=== PATIENT | male | born 1955 | race Caucasian/White ===

== ENCOUNTER → 2018-08-31 | Outpatient (CLI) | payer OTHER ==
[~2018-08-31] MED LIST: AMLO10TA2 PO; ASPI81TA85 PO; FISH1000 PO; LIPI20TA PO; LOPR50TA PO; LOSA100T36 PO; OMEP40CA2 PO; VICO5TAB PO
--- NOTE | 2018-09-01 05:51 | REP ---
Clinical: Nontoxic thyroid goiter. Comparison: None Technique: Real time gibson scale examination using high frequency transducer. Findings: The thyroid gland is mildly enlarged and diffusely heterogeneous. Left lobe measures 6.1 x 1.4 x 2.5 cm without cyst or nodule. Right lobe measures 5.0 x 2.3 x 1.7 cm and includes 2.1 x 0.7 x 1.3 cm isoechoic anterior mid pole nodule and 1.7 x 1.4 x 1.7 cm complex posterior mid pole nodule. The isthmus measures 5.2 mm in width. 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 Electronically Signed by James Singh MD 09/01/2018 05:43 A
== END ==
LOC: M RAD 09:20
PROVIDERS: ATTEND Otolaryngology
DX: E04.9 Nontoxic goiter, unspecified (principal)

== ENCOUNTER 2018-10-27 10:06 | Day surgery (SDC) | payer OTHER ==
[~2018-10-27] VITALS: Ht 177.8 cm; Wt 102.1 kg
[~2018-10-27 10:06] MED LIST changes: +AMLO10TA5 PO; +ATOR80TA59 PO; +CRES10TA PO; +HYDR-3713 PO; +HYDR-4514 PO; +LOSA100T50 PO; +LR 1,000 ML IV ONE; +METO1TAB7 PO; +METO50TA7 PO; +OMEG10002 PO; +OMEP-218 PO; +dexameTHASONE 4 MG/ML 1ML VIAL (J1100) IV ONE
[2018-10-27] MEDS ORDERED: ONDANSETRON 4MG/2ML VIAL (J2405) As Ordered ONE (10:38)
[2018-10-27] MEDS ORDERED: LIDOCAINE 2% INJ 100 MG/5 ML SDV (FOR ANES.) As Ordered ONE (10:38)
[2018-10-27] MEDS ORDERED: dexameTHASONE 4 MG/ML 1ML VIAL (J1100) As Ordered ONE (10:38)
[2018-10-27] MEDS ORDERED: ROCURONIUM BROMIDE 50 MG/5 ML VIAL As Ordered ONE ×2 (10:38→14:23)
[2018-10-27] MEDS ORDERED: PROPOFOL 200 MG/20 ML VIAL As Ordered ONE (10:38)
[2018-10-27] MEDS ORDERED: NEOSTIGMINE 10 MG/10 ML VIAL (J2710) As Ordered ONE (10:38)
[2018-10-27] MEDS ORDERED: MIDAZOLAM INJ 2 MG/2 ML VIAL (J2250) As Ordered ONE (10:38)
[2018-10-27] MEDS ORDERED: GLYCOPYRROLATE INJ 0.2 MG/ML 2 ML VIAL As Ordered ONE (10:38)
[2018-10-27] MEDS ORDERED: fentaNYL 100 MCG/2 ML INJECTION (J3010) As Ordered ONE ×3 (10:39→17:05)
[2018-10-27 11:10] LABS: HEMOGLOBIN 14.9 g/dl (13.5-17.5); MEAN CORPUSCULAR HEMOGLOBIN 31.4 pg (27.0-33.0); MEAN CORPUSCULAR HGB CONC 33.1 g/dl (32.0-36.5); MEAN CORPUSCULAR VOLUME 94.9 fl (80.0-96.0); PLATELET COUNT, AUTOMATED 224 10^3/uL (150-450); RED BLOOD COUNT 4.74 10^6/uL (4.30-6.10); WHITE BLOOD COUNT 6.2 10^3/uL (4.0-10.0)
[2018-10-27 11:43] LABS: BLOOD UREA NITROGEN 12 MG/DL (7-18); CALCIUM LEVEL 8.8 MG/DL (8.8-10.2); CARBON DIOXIDE LEVEL 27 MEQ/L (21-32); CHLORIDE LEVEL 106 MEQ/L (98-107); CREATININE FOR GFR 0.85 MG/DL (0.70-1.30); GLOMERULAR FILTRATION RATE > 60.0 (>49); GLUCOSE, FASTING 113 MG/DL (70-100); POTASSIUM SERUM 4.2 MEQ/L (3.5-5.1); SODIUM LEVEL 139 MEQ/L (136-145)
[2018-10-27] MEDS ORDERED: LIDOCAINE W/EPINEPHRINE 1% 20ML VIAL As Ordered ONE (13:21)
[2018-10-27] MEDS ORDERED: PHENYLEPHRINE INJ 10MG/ML VIAL (J2370) As Ordered ONE (14:25)
[2018-10-27] MEDS ORDERED: BACITRACIN OINT 30GM As Ordered ONE (16:19)
[2018-10-27] MEDS: fentaNYL 100 MCG/2 ML INJECTION (J3010) IV PRN ×2 (16:50→17:00)
[2018-10-27] MEDS ORDERED: PERCOCET 5MG/325MG TAB As Ordered ONE (17:05)
[2018-10-27] MEDS: NORCO, ANEXSIA 5/325MG TABLET (HYDROcodone/ACETAMINOPHEN) PO PRN ×3 (17:15→17:45)
[2018-10-27] MEDS ORDERED: METOCLOPRAMIDE INJ 10MG/2ML VIAL (J2765) IV PRN (17:15)
[2018-10-27] MEDS ORDERED: ONDANSETRON 4MG/2ML VIAL (J2405) IV PRN (17:15)
[2018-10-27] MEDS ORDERED: PERCOCET 5MG/325MG TAB PO PRN (17:15)
[2018-10-27] MEDS ORDERED: NORCO, ANEXSIA 5/325MG TABLET (HYDROcodone/ACETAMINOPHEN) As Ordered ONE (17:15)
[2018-10-27] MEDS ORDERED: LR 1,000 ML IV SCH ×2 (17:15)
[2018-10-27] MEDS ORDERED: AUGMENTIN 875 MG TAB PO ONE (18:00)
[2018-10-27 18:05] VITALS: BP 126/74
== END 2018-10-27 18:35 | disposition home or self-care (01) ==
LOC: M SDC 10:06
PROVIDERS: ATTEND Otolaryngology
DX: Q89.2 Congenital malformations of other endocrine glands (principal); I10 Essential (primary) hypertension; E78.5 Hyperlipidemia, unspecified; F17.210 Nicotine dependence, cigarettes, uncomplicated; G47.30 Sleep apnea, unspecified; K21.9 Gastro-esophageal reflux disease without esophagitis; Z92.3 Personal history of irradiation; Z79.82 Long term (current) use of aspirin; Z79.899 Other long term (current) drug therapy
CPT/HCPCS: 36415; 60280; 80048; 85027; 88305; J1100; J2250; J2370; J2405; J2710; J3010

== ENCOUNTER → 2018-11-24 | Outpatient (CLI) | payer OTHER ==
[~2018-11-24] MED LIST changes: -LR 1,000 ML IV ONE; -dexameTHASONE 4 MG/ML 1ML VIAL (J1100) IV ONE
== END ==
LOC: M SMT 10:20
PROVIDERS: ATTEND Nurse Practitioner Women's Health
DX: Z85.46 Personal history of malignant neoplasm of prostate (principal)

== ENCOUNTER → 2018-12-28 | Outpatient (CLI) | payer OTHER ==
--- NOTE | 2018-12-28 12:07 | REP ---
WHOLE BODY BONE SCAN: Following the intravenous administration of 21.9 millicuries of technetium 99m MDP, the patient's whole body is imaged in the anterior and posterior projections with additional oblique and lateral views obtained. There is relatively homogenous trace distribution throughout the axial and appendicular skeleton. No focal areas of abnormal uptake are seen, with no compelling scintigraphic evidence of osseous metastases. Renal and bladder activity are seen. IMPRESSION: No compelling scintigraphic evidence of osseous metastases. Electronically Signed by Raman Zambrano MD 12/28/2018 05:33 P
== END ==
LOC: M RAD 07:38
PROVIDERS: ATTEND Nurse Practitioner Women's Health
DX: R97.21 Rising PSA following treatment for malignant neoplasm of prostate (principal)
CPT/HCPCS: 78306; A9503

== ENCOUNTER → 2019-01-06 | Outpatient (REF) | payer OTHER ==
[2019-01-06 14:47] LABS: APPEARANCE, URINE CLEAR (CLEAR); BACTERIA, URINE AUTO NEGATIVE (NEGATIVE); BILIRUBIN, URINE AUTO NEGATIVE (NEGATIVE); BLOOD, URINE BLOOD NEGATIVE (NEGATIVE); COLOR, URINE STRAW (YELLOW); GLUCOSE, URINE (UA) AUTO NEGATIVE (NEGATIVE); KETONE, URINE AUTO NEGATIVE (NEGATIVE); LEUKOCYTE ESTERASE, URINE AUTO NEGATIVE (NEGATIVE); NITRITE, URINE AUTO NEGATIVE (NEGATIVE); PROTEIN, URINE AUTO NEGATIVE (NEGATIVE); RBC, URINE AUTO 0 /HPF (0-3); SPECIFIC GRAVITY URINE AUTO 1.008 (1.002-1.035); SQUAMOUS EPITHELIAL CELL UR AU 0 /HPF (0-6); UROBILINOGEN, URINE AUTO 0.2 mg/dL (0.0-2.0); WBC, URINE AUTO 0 /HPF (0-3)
== END ==
LOC: M SMT 13:45
PROVIDERS: ATTEND Urology
DX: N28.89 Other specified disorders of kidney and ureter (principal); Z01.818 Encounter for other preprocedural examination; N39.0 Urinary tract infection, site not specified

== ENCOUNTER 2019-01-11 14:00 | Day surgery (SDC) | payer OTHER ==
[~2019-01-11] VITALS: Ht 177.8 cm; Wt 97.3 kg
[~2019-01-11 14:00] MED LIST changes: +LIDOCAINE 2% INJ 100 MG/5 ML SDV (FOR ANES.) As Ordered ONE; +LR 1,000 ML IV ONE; +MIDAZOLAM INJ 2 MG/2 ML VIAL (J2250) As Ordered ONE; +PROPOFOL 200 MG/20 ML VIAL As Ordered ONE; +ROCURONIUM BROMIDE 50 MG/5 ML VIAL As Ordered ONE; +fentaNYL 250 MCG/5 ML INJECTION (J3010) As Ordered ONE
[2019-01-11] MEDS ORDERED: CONRAY-60 60% 50ML VIAL (Q9961) As Ordered ONE (15:11)
[2019-01-11] MEDS ORDERED: KETOROLAC 60 MG/2 ML VIAL (J1885) As Ordered ONE (15:29)
[2019-01-11] MEDS ORDERED: ONDANSETRON 4MG/2ML VIAL (J2405) As Ordered ONE (15:29)
[2019-01-11] MEDS ORDERED: dexameTHASONE 4 MG/ML 1ML VIAL (J1100) As Ordered ONE (15:29)
[2019-01-11] MEDS ORDERED: SUGAMMADEX SODIUM 500 MG/5 ML VIAL (BRIDION) As Ordered ONE (15:29)
[2019-01-11] MEDS ORDERED: PERCOCET 5MG/325MG TAB As Ordered ONE (16:11)
--- NOTE | 2019-01-11 16:13 | REP ---
Retrograde pyelogram: Seven views. History: Transurethral resection of bladder tumor. 24 seconds of fluoroscopy time is reported. Findings: A sequence of seven last image hold fluoroscopically obtained spot radiographs of the left ureter document left ureteral cannulation, contrast injection, and stent placement. Initial views demonstrate an irregular filling defect in the distal ureter. Electronically Signed by Sawyer Mcclure MD 01/11/2019 04:35 P
[2019-01-11] MEDS ORDERED: LR 1,000 ML IV SCH (16:15)
[2019-01-11] MEDS ORDERED: PERCOCET 5MG/325MG TAB PO PRN (16:15)
[2019-01-11] MEDS ORDERED: fentaNYL 100 MCG/2 ML INJECTION (J3010) IV PRN (16:15)
[2019-01-11] MEDS ORDERED: ONDANSETRON 4MG/2ML VIAL (J2405) IV PRN (16:15)
[2019-01-11 16:35] VITALS: BP 153/79
--- NOTE | 2019-01-12 07:22 | RO ---
DATE OF PROCEDURE: 01/11/2019 PREPROCEDURE DIAGNOSIS: Gross hematuria, left renal mass. POSTPROCEDURE DIAGNOSIS: Gross hematuria, left renal mass. PROCEDURE: Cystoscopy, left ureteroscopy, left retrograde pyelogram with intraoperative interpretative images, left ureteral stent placement. SURGEON: Dr. Winston Martinez INSTRUMENT DESIGNER: None. ANESTHESIA: General. OPERATIVE INDICATIONS: This is a 63-year-old male who on recent CAT scan was found to have a 4 cm central enhancing and infiltrative left renal mass. Based on the appearance of this, it was not easily determined whether or not this was renal cell carcinoma or urothelial carcinoma. The patient has also had gross hematuria. He is therefore brought to the operating room today for cystoscopy as well as exam in his left collecting systems for possible mass and to obtain biopsies. DESCRIPTION OF PROCEDURE: The patient was brought to the operating room where general anesthesia was induced. Prophylactic antibiotics were infused. He was then placed in dorsal lithotomy position and prepped and draped in the usual sterile fashion. Cystoscope was inserted into the urethral meatus and advanced towards the bladder. Of note, his bladder is hypervascular which is consistent with his previous history of radiation for prostate cancer. No masses were seen within the bladder. Both ureteral orifices were orthotopic and both effluxed clear urine. At this point, an open ended ureteral catheter was advanced into the left collecting system and a retrograde pyelogram was performed. It was negative for hydronephrosis or filling defects. I then advanced a wire up the left collecting system and then advanced a ureteral access sheath over the wire. I went up the access sheath with a flexible ureteroscope and examined all the calices of the left kidney and no masses were seen within the left kidney. I then obtained renal pelvic washing to be sent to cytology. After that was done, the ureteroscope was removed along with the access sheath. Because of some narrowing of the ureter and difficulty getting the scope up, I did decide to leave a stent. At this point, I utilized the wire to advance a 6 Serbian x 22-32 cm JJ ureteral stent up the left collecting system. The wire was removed and there were adequate curls of the stent in the left renal pelvis and in the bladder. At this point, the bladder was emptied of all fluid and this marked the conclusion of the procedure. The patient was taken out of dorsal lithotomy position, awakened from anesthesia and transported to the recovery room in stable condition. Estimated blood loss: 5 mL. Complications: None. Specimen: Left renal pelvis washing for cytology. Plan: I will have the patient follow up in the clinic within the next week or two to discuss the results of the cytology. I suspect the mass is renal cell carcinoma based on the procedure today, and therefore, he would need a left radical nephrectomy for treatment. MTDD
== END 2019-01-11 16:53 | disposition home or self-care (01) ==
LOC: M SDC 14:00
PROVIDERS: ATTEND Urology
DX: R31.0 Gross hematuria (principal); N28.89 Other specified disorders of kidney and ureter; C61 Malignant neoplasm of prostate; R97.21 Rising PSA following treatment for malignant neoplasm of prostate; N39.0 Urinary tract infection, site not specified; I10 Essential (primary) hypertension; E78.49 Other hyperlipidemia; K21.9 Gastro-esophageal reflux disease without esophagitis; F17.210 Nicotine dependence, cigarettes, uncomplicated; Z79.82 Long term (current) use of aspirin; Z79.899 Other long term (current) drug therapy; Z92.3 Personal history of irradiation
CPT/HCPCS: 52332; 74420; 88108; 88313; C1769; C1894; C2617; J0690; J1100; J1885; J2250; J2405; J3010; Q9961

== ENCOUNTER 2019-02-08 06:08 | Inpatient (IN) | payer OTHER ==
[~2019-02-08] VITALS: Ht 177.8 cm; Wt 97.0 kg
[2019-02-08] VITALS (7 sets, daily range): BP systolic 124–157; BP diastolic 62–92; O2SAT 98
[~2019-02-08 06:08] MED LIST changes: +LIDOCAINE 1% MDV 20ML VIAL SQ PRN; -LIDOCAINE 2% INJ 100 MG/5 ML SDV (FOR ANES.) As Ordered ONE; -MIDAZOLAM INJ 2 MG/2 ML VIAL (J2250) As Ordered ONE; -PROPOFOL 200 MG/20 ML VIAL As Ordered ONE; -ROCURONIUM BROMIDE 50 MG/5 ML VIAL As Ordered ONE; -fentaNYL 250 MCG/5 ML INJECTION (J3010) As Ordered ONE
[2019-02-08] MEDS ORDERED: PROPOFOL 200 MG/20 ML VIAL As Ordered ONE (07:04)
[2019-02-08] MEDS ORDERED: ROCURONIUM BROMIDE 50 MG/5 ML VIAL As Ordered ONE ×3 (07:04→09:57)
[2019-02-08] MEDS ORDERED: LIDOCAINE 2% INJ 100 MG/5 ML SDV (FOR ANES.) As Ordered ONE (07:04)
[2019-02-08] MEDS ORDERED: ONDANSETRON 4MG/2ML VIAL (J2405) As Ordered ONE (07:05)
[2019-02-08] MEDS ORDERED: dexameTHASONE 4 MG/ML 1ML VIAL (J1100) As Ordered ONE (07:05)
[2019-02-08] MEDS ORDERED: MIDAZOLAM INJ 2 MG/2 ML VIAL (J2250) As Ordered ONE (07:08)
[2019-02-08] MEDS ORDERED: fentaNYL 250 MCG/5 ML INJECTION (J3010) As Ordered ONE (07:08)
[2019-02-08] MEDS ORDERED: LIDOCAINE 1% SDV INJ 30 ML VIAL As Ordered ONE (07:09)
[2019-02-08] MEDS ORDERED: BUPIVACAINE HCL 0.25% 30 ML VIAL As Ordered ONE (07:09)
[2019-02-08] MEDS ORDERED: ACETAMINOPHEN TAB 650MG DOSE (2X325MG) PO PRN (07:30)
[2019-02-08] MEDS ORDERED: MORPHINE 4 MG/ML 1ML VIAL/SYRINGE (J2270) IV PRN (07:30)
[2019-02-08] MEDS ORDERED: ONDANSETRON 4MG/2ML VIAL (J2405) IV PRN ×2 (07:30→13:00)
[2019-02-08] MEDS ORDERED: ACETAMINOPHEN 1000MG 100ML IV BTL (OFIRMEV) (J0131 PER 10MG) As Ordered ONE (08:40)
[2019-02-08] MEDS ORDERED: fentaNYL 100 MCG/2 ML INJECTION (J3010) As Ordered ONE ×3 (08:51→12:47)
[2019-02-08] MEDS ORDERED: HYDROmorphone HCL 2 MG/ML 1ML VIAL (J1170) As Ordered ONE (11:36)
[2019-02-08] MEDS ORDERED: SUGAMMADEX SODIUM 500 MG/5 ML VIAL (BRIDION) As Ordered ONE (11:40)
[2019-02-08] MEDS: fentaNYL 100 MCG/2 ML INJECTION (J3010) IV PRN ×4 (12:50→13:05)
[2019-02-08 12:58] LABS: HEMATOCRIT 43.8 % (42.0-52.0); HEMOGLOBIN 14.9 g/dl (13.5-17.5); MEAN CORPUSCULAR HEMOGLOBIN 31.9 pg (27.0-33.0); MEAN CORPUSCULAR VOLUME 93.8 fl (80.0-96.0); PLATELET COUNT, AUTOMATED 239 10^3/uL (150-450); RED BLOOD COUNT 4.67 10^6/uL (4.30-6.10); WHITE BLOOD COUNT 11.5 10^3/uL (4.0-10.0)
[2019-02-08] MEDS ORDERED: MEPERIDINE INJ 25 MG/ML VIAL (J2175) IV PRN (13:00)
[2019-02-08] MEDS ORDERED: PERCOCET 5MG/325MG TAB PO PRN (13:00)
[2019-02-08] MEDS ORDERED: METOCLOPRAMIDE INJ 10MG/2ML VIAL (J2765) IV PRN (13:00)
[2019-02-08] MEDS ORDERED: LR 1,000 ML IV SCH (13:00)
[2019-02-08 13:20] LABS: BLOOD UREA NITROGEN 14 MG/DL (7-18); CALCIUM LEVEL 8.9 MG/DL (8.8-10.2); CARBON DIOXIDE LEVEL 27 MEQ/L (21-32); CHLORIDE LEVEL 102 MEQ/L (98-107); CREATININE FOR GFR 1.12 MG/DL (0.70-1.30); GLOMERULAR FILTRATION RATE > 60.0 (>49); GLUCOSE, FASTING 150 MG/DL (70-100); POTASSIUM SERUM 4.6 MEQ/L (3.5-5.1); SODIUM LEVEL 137 MEQ/L (136-145)
[2019-02-08] MEDS: NS 1,000 ML IV SCH ×3 (13:25→22:50)
--- NOTE | 2019-02-08 13:28 | ROOPDOC ---
[facility] Report Of Operation Report of Operation DATE OF PROCEDURE: 02/08/19 PREPROCEDURE DIAGNOSIS: Left renal neoplasm. POSTPROCEDURE DIAGNOSIS: Left renal neoplasm. PROCEDURE: Left robotic-assisted laparoscopic radical nephrectomy (adrenal- sparing). SURGEON: Yesica Fernandes MD ELECTRONIC GLUER: Korina Samuels ANESTHESIA: General OPERATIVE INDICATIONS: This is a 63-year-old male who was found to have a 4cm enhancing central left renal neoplasm, concerning for malignancy. He was brought to the operating room today for the above treatment. DESCRIPTION OF PROCEDURE: The patient was brought to the operating room where general anesthesia was induced. Prophylactic antibiotics were infused. A Tidwell catheter was placed into his bladder under sterile conditions. He was then placed in the right lateral decubitus position. All pressure points were ap propriately padded and an axillary roll was placed. We then secured the patient to the table with tape. His abdomen was then prepped and draped in the usual sterile fashion. Next, an 8mm incision was made in line with the 11th rib along the lateral border of the rectus. Pneumoperitoneum was achieved with a Veress needle. Next, an 8mm port was placed for the camera. At this point, the left robotic port was placed off the costal margin. Two right hand robotic ports were then placed with one between the anterior superior iliac spine and the umbilicus and the other one just caudal to the camera port. The one just caudal to the camera port was a 12mm robotic port. Last the 15 mm human resources benefits assistant port was placed inferior and medial to the camera port. The robot was then docked. Attachments between the spleen and the Gerota's fascia were then released. The left colon was then mobilized medially. At this point, after mobilizing the left colon completely, we then developed a plane onto the psoas muscle off the lower pole of the kidney. The left gonadal vein was identified and was carried cephalad until the left renal vein was encountered. The left renal artery was identified just posterior to the vein. It was carefully dissected and ligated with 3 Weck clips and then transected in between, leaving 2 Weck clips on the stay side. After this the left renal vein was carefully dissected. The left gonadal vein vein was ligated and transected at its insertion into the renal vein using Weck clips. Once this was done, the left renal vein was ligated and transected using a robotic 45mm endovascular stapler. We then began mobilizing the kidney on all sides. The left adrenal gland was identified and was dissected away and spared. After mobilizing the left kidney on all sides, its only remaining attachment was the left ureter. The ureter was then opened and the previously placed ureteral stent was withdrawn from the distal ureter and the bladder. After the stent was withdrawn a Weck clip was placed on the distal ureter. The gonadal vein and artery were both ligated with Weck clips and then transected in between. At this point, we checked for hemostasis and hemostasis appeared excellent. We then placed the left kidney and the ureteral stent in a large EndoCatch bag. This bag was closed and then left for future retrieval. Lorenzo hemostatic agent was placed on the left renal hilum and the left adrenal gland. We then undocked the robot and a Hardy fascial closure device was utilized to place a 0-vicryl suture through the fascia of the 15mm port site. We then connected the incisions for both of the right hand robotic port sites to extract the specimen. We then dissected down through the musculofascial layers and extended the fascia. The muscle was bluntly spread, and we then extracted the specimen through this incision. Once that was done, we checked for hemostasis through the extraction incision and it appeared excellent. The muscle was then reapproximated using a [id number] #0 Vicryl suture. The fascia of this incision was then closed with a running #0 Vicryl suture. At this point, the abdomen was then reinsufflated. We looked at the extraction incision, and there was no active bleeding and no abdominal contents were caught within the suture. Once this was done, all the remaining ports were removed and there was no bleeding. We then tied down the #0 Vicryl suture in the 15mm port site. Once this was done, all wounds were thoroughly irrigated. The subcutaneous fat of the extraction incision was then closed with interrupted #3-0 Vicryl sutures. We then closed the skin of all incisions using subcuticular #4-0 Monocryl suture. Local anesthetic was then applied and then Dermabond was applied and marked the conclusion of the procedure. The patient was then taken out of the right lateral decubitus position, awakened from anesthesia and transported to the recovery room in stable condition. ESTIMATED BLOOD LOSS: 150mL. COMPLICATIONS: None. SPECIMENS: Left kidney. PLAN: The patient will be admitted to the hospital postoperatively for monitoring and likely will be discharged home in 1-2 days. YESICA FERNANDES MD Feb 08, 2019 13:28
[2019-02-08] MEDS: PERCOCET 5MG/325MG TAB PO PRN ×4 (13:29→22:51)
[2019-02-08] MEDS: ceFAZolin SOD 1 GM in D5W MINI-BAG PLUS 50 ML IV SCH (16:01)
[2019-02-08] MEDS: DOCUSATE SODIUM 100 MG CAP PO SCH (21:00)
[2019-02-08] MEDS: ATORVASTATIN 20 MG TAB PO SCH (21:13)
[2019-02-08] MEDS: LOSARTAN 50 MG TAB PO SCH (21:13)
[2019-02-08] MEDS: OMEPRAZOLE 20 MG CAP PO SCH (21:14)
[2019-02-08] MEDS: METOPROLOL TART 50 MG TAB PO SCH (21:14)
[2019-02-09] VITALS (7 sets, daily range): BP systolic 130–160; BP diastolic 80–89; O2SAT 92–100
[2019-02-09] MEDS: ceFAZolin SOD 1 GM in D5W MINI-BAG PLUS 50 ML IV SCH (00:51)
[2019-02-09] MEDS: PERCOCET 5MG/325MG TAB PO PRN ×3 (05:03→20:30)
[2019-02-09 06:06] LABS: HEMATOCRIT 38.3 % (42.0-52.0); HEMOGLOBIN 13.2 g/dl (13.5-17.5); MEAN CORPUSCULAR HGB CONC 34.5 g/dl (32.0-36.5); PLATELET COUNT, AUTOMATED 195 10^3/uL (150-450); RED BLOOD COUNT 4.12 10^6/uL (4.30-6.10); WHITE BLOOD COUNT 7.9 10^3/uL (4.0-10.0)
[2019-02-09 06:31] LABS: BLOOD UREA NITROGEN 11 MG/DL (7-18); CALCIUM LEVEL 8.7 MG/DL (8.8-10.2); CARBON DIOXIDE LEVEL 29 MEQ/L (21-32); CHLORIDE LEVEL 102 MEQ/L (98-107); CREATININE FOR GFR 1.21 MG/DL (0.70-1.30); GLOMERULAR FILTRATION RATE > 60.0 (>49); GLUCOSE, FASTING 108 MG/DL (70-100); POTASSIUM SERUM 3.8 MEQ/L (3.5-5.1); SODIUM LEVEL 137 MEQ/L (136-145)
--- NOTE | 2019-02-09 07:45 | IPNPDOC ---
Subjective Review oF Systems Chief Complaint The patient is a 63-year-old male admitted with a reason for visit of Renal Mass. Events since Last Encounter No acute events o/n. Good pain control. No n/v. Tolerating diet. Has not ambulated yet. No f/c/ns. Objective Physical Examination General Exam: Alert, Cooperative, No Acute Distress ABDOMEN EXAM: Soft, Tenderness (mild), Other (incisions clean/dry/intact) Skin Exam: Nl turgor and temperature Neuro Exam: Normal Speech Psych Exam: Mental status NL, Mood NL Other physical findings catheter draining clear urine Vital Signs/I&O Vital Signs Date Time Temp Pulse Resp B/P (MAP) Pulse Ox O2 Delivery O2 Flow Rate FiO2 02/09/19 05:33 18 2.0 02/09/19 05:03 98 02/09/19 04:00 98.1 94 130/81 (97) 02/08/19 18:13 Nasal Cannula I&O- Last 24 Hours up to 6 AM 02/09/19 06:00 Intake Total 3570 ml Output Total 1800 ml Balance 1770 ml Laboratory Data Labs 24H Laboratory Tests 2 02/08/19 12:40: Nucleated Red Blood Cells % (auto) 0.0, Anion Gap 8, Glomerular Filtration Rate > 60.0, Blood Urea Nitrogen 14, Creatinine 1.12, Sodium Level 137, Potassium Le becki 4.6, Chloride Level 102, Carbon Dioxide Level 27, Calcium Level 8.9 02/09/19 05:09: Nucleated Red Blood Cells % (auto) 0.0, Anion Gap 6L, Glomerular Filtration Rate > 60.0, Blood Urea Nitrogen 11, Creatinine 1.21, Sodium Level 137, Potassium Level 3.8, Chloride Level 102, Carbon Dioxide Level 29, Calcium Level 8.7L CBC/BMP Laboratory Tests 02/08/19 12:40 Red Blood Count 4.67, Mean Corpuscular Volume 93.8, Mean Corpuscular Hemoglobin 31.9, Mean Corpuscular Hemoglobin Concent 34.0, Red Cell Distribution Width 11.9, Calcium Level 8.9 02/09/19 05:09 Red Blood Count 4.12 L, Mean Corpuscular Volume 93.0, Mean Corpuscular Hemoglo bin 32.0, Mean Corpuscular Hemoglobin Concent 34.5, Red Cell Distribution Width 11.9, Calcium Level 8.7 L Assessment/Plan Date Seen The patient was seen on 02/09/19. Patient Summary This is a 63 y/o M POD1 s/p left robotic radical nephrectomy. He is doing well this am. His Cr is 1.2. His UOP has been good. Hb is stable. Plan/VTE VTE Prophylaxis Ordered?: Yes VTE Exclusion Mechanical Proph: N/A:VTE Prophy Ordered Plan/Urinary Catheter Urinary Catheter: D/C Tidwell Plan - d/c Tidwell - d/c IVF - encourage PO hydration - cont home meds - strict I/Os - SCDs when in bed - ambulate - percocet prn pain - advance diet as tolerated YESICA FERNANDES MD Feb 09, 2019 07:45
[2019-02-09] MEDS: ASPIRIN 81 MG ENTERIC TAB PO SCH (08:12)
[2019-02-09] MEDS: amLODIPine 10 MG TAB PO SCH (08:13)
[2019-02-09] MEDS: DOCUSATE SODIUM 100 MG CAP PO SCH ×2 (08:13→20:27)
[2019-02-09] MEDS: METOPROLOL TART 50 MG TAB PO SCH ×2 (08:13→20:28)
[2019-02-09] MEDS: LOSARTAN 50 MG TAB PO SCH (20:27)
[2019-02-09] MEDS: ATORVASTATIN 20 MG TAB PO SCH (20:28)
[2019-02-09] MEDS: OMEPRAZOLE 20 MG CAP PO SCH (20:28)
[2019-02-10] MEDS: PERCOCET 5MG/325MG TAB PO PRN ×3 (00:56→13:59)
[2019-02-10 05:52] LABS: HEMATOCRIT 40.1 % (42.0-52.0); HEMOGLOBIN 13.5 g/dl (13.5-17.5); MEAN CORPUSCULAR HEMOGLOBIN 31.7 pg (27.0-33.0); MEAN CORPUSCULAR HGB CONC 33.7 g/dl (32.0-36.5); MEAN CORPUSCULAR VOLUME 94.1 fl (80.0-96.0); PLATELET COUNT, AUTOMATED 186 10^3/uL (150-450); RED BLOOD COUNT 4.26 10^6/uL (4.30-6.10); WHITE BLOOD COUNT 8.6 10^3/uL (4.0-10.0)
[2019-02-10 06:00] VITALS: BP 141/88
[2019-02-10 06:13] LABS: BLOOD UREA NITROGEN 13 MG/DL (7-18); CALCIUM LEVEL 9.2 MG/DL (8.8-10.2); CARBON DIOXIDE LEVEL 34 MEQ/L (21-32); CHLORIDE LEVEL 100 MEQ/L (98-107); CREATININE FOR GFR 1.13 MG/DL (0.70-1.30); GLOMERULAR FILTRATION RATE > 60.0 (>49); GLUCOSE, FASTING 100 MG/DL (70-100); POTASSIUM SERUM 3.6 MEQ/L (3.5-5.1); SODIUM LEVEL 135 MEQ/L (136-145)
--- NOTE | 2019-02-10 07:34 | IPNPDOC ---
Subjective Review oF Systems Chief Complaint The patient is a 63-year-old male admitted with a reason for visit of Renal Mass. Events since Last Encounter No acute events o/n. Pain is a little better this morning. He did not ambulate at all yesterday but stood at the bedside a few times. No n/v. No f/c/ns. Objective Physical Examination General Exam: Alert, Cooperative, No Acute Distress ABDOMEN EXAM: Soft, Tenderness (mild), Other (incisions clean/dry/intact) Skin Exam: Nl turgor and temperature Neuro Exam: Normal Speech Psych Exam: Mental status NL, Mood NL Vital Signs/I&O Vital Signs Date Time Temp Pulse Resp B/P (MAP) Pulse Ox O2 Delivery O2 Flow Rate FiO2 02/10/19 06:53 18 02/10/19 06:00 98.3 81 141/88 (105) 91 02/09/19 09:00 Room Air 02/09/19 05:33 2.0 I&O- Last 24 Hours up to 6 AM 02/10/19 06:00 Intake Total 1105 ml Output Total 2600 ml Balance -1495 ml Laboratory Data Labs 24H Laboratory Tests 2 02/10/19 05:21: Nucleated Red Blood Cells % (auto) 0.0, Anion Gap 1L, Glomerular Filtration Rate > 60.0, Blood Urea Nitrogen 13, Creatinine 1.13, Sodium Level 135L, Potassium Level 3.6, Chloride Level 100, Carbon Dioxide Level 34H, Calcium Level 9.2 CBC/BMP Laboratory Tests 02/10/19 05:21 Red Blood Count 4.26 L, Mean Corpuscular Volume 94.1, Mean Corpuscular Hemoglobin 31.7, Mean Corpuscular Hemoglobin Concent 33.7, Red Cell Distribution Width 11.9, Calcium Level 9.2 Assessment/Plan Date Seen The patient was seen on 02/10/19. Patient Summary This is a 63 y/o M POD2 s/p left robotic radical nephrectomy. His UOP has been excellent. Cr is stable at 1.1. Hb stable. Plan/VTE VTE Prophylaxis Ordered?: Yes VTE Exclusion Mechanical Proph: N/A:VTE Prophy Ordered Plan - percocet prn pain - will get patient ambulating - cont home meds - SCDs when in bed - incentive spirometry - regular diet - discharge home later today YESICA FERNANDES MD Feb 10, 2019 07:34
[2019-02-10 09:00] VITALS: O2SAT 95
[2019-02-10] MEDS: DOCUSATE SODIUM 100 MG CAP PO SCH (09:47)
[2019-02-10 09:48] VITALS: BP 136/84
[2019-02-10] MEDS: amLODIPine 10 MG TAB PO SCH (09:48)
[2019-02-10] MEDS: ASPIRIN 81 MG ENTERIC TAB PO SCH (09:48)
[2019-02-10] MEDS: METOPROLOL TART 50 MG TAB PO SCH (09:48)
[2019-02-10] MEDS ORDERED: tylenol PO (13:21)
[2019-02-10] MEDS ORDERED: COLA100C5 PO (13:21)
--- NOTE | 2019-02-11 10:34 | DSES ---
DATE OF ADMISSION: 02/08/2019 DATE OF DISCHARGE: 02/10/2019 ADMISSION DIAGNOSES: Left renal neoplasm. DISCHARGE DIAGNOSIS: Left renal cell carcinoma. ADMITTING PHYSICIAN: Dr. Winston Martinez DISCHARGING PHYSICIAN: Dr. Winston Martinez PROCEDURE PERFORMED: Left robotic assisted laparoscopic radical nephrectomy on 02/08/2019. HISTORY OF PRESENT ILLNESS: This is a 63-year-old male who was found to have an approximately 4 cm central enhancing left renal neoplasm concerning for malignancy. He underwent the above listed procedure and was admitted to the hospital postoperatively. HOSPITALIZATION COURSE: The patient's postoperative course was unremarkable. On postoperative day 1, he did have some issue with pain control and therefore did not ambulate much. He was tolerating a regular diet by the end of postoperative day 1. By postoperative day 2, he had better pain control and was able to ambulate well. He was also evaluated by physical therapy (PT) and was deemed cleared to ambulate on his own at home. Of note, all of his blood work during the stay was within acceptable limits, specifically his creatinine went up to 1.2 on postoperative day 1 and then came down to 1.1 on postoperative day 2. His urine output was excellent throughout his stay. His hemoglobin remained stable at around 13. Since he was doing so well, he was deemed ready for discharge home on postoperative day 2. He will followup in the clinic in approximately 1 to 2 weeks and discuss his pathology results in the postoperative visit.
== END 2019-02-10 14:25 | disposition home or self-care (01) | DRG 442 ==
LOC: M OR 06:08 → M MSPAV 15:30
PROVIDERS: ADMIT Urology; ATTEND Urology
PROC: 8E0W4CZ Robotic Assisted Procedure of Trunk Region, Percutaneous Endoscopic Approach (ICD-10-PCS; 2019-02-08)
PROC: 0TT14ZZ Resection of Left Kidney, Percutaneous Endoscopic Approach (ICD-10-PCS; principal; 2019-02-08 07:30)
DX: C64.2 Malignant neoplasm of left kidney, except renal pelvis (principal); G83.4 Cauda equina syndrome; E78.2 Mixed hyperlipidemia; I10 Essential (primary) hypertension; K21.9 Gastro-esophageal reflux disease without esophagitis; R97.20 Elevated prostate specific antigen [PSA]; R73.9 Hyperglycemia, unspecified; M51.16 Intervertebral disc disorders with radiculopathy, lumbar region; F17.210 Nicotine dependence, cigarettes, uncomplicated; Z85.46 Personal history of malignant neoplasm of prostate; Z79.899 Other long term (current) drug therapy; Z79.82 Long term (current) use of aspirin

== ENCOUNTER → 2019-04-13 | Outpatient (CLI) | payer OTHER ==
[~2019-04-13] MED LIST changes: +COLA100C5 PO; -LIDOCAINE 1% MDV 20ML VIAL SQ PRN; -LR 1,000 ML IV ONE; +tylenol PO
== END ==
LOC: M SMT 10:02
PROVIDERS: ATTEND Urology
DX: C61 Malignant neoplasm of prostate (principal); R97.21 Rising PSA following treatment for malignant neoplasm of prostate

== ENCOUNTER → 2019-08-22 | Outpatient (CLI) | payer OTHER ==
[~2019-08-22] MED LIST changes: +ISOVUE-370 76% 100ML VIAL (Q9967) As Ordered ONE
--- NOTE | 2019-08-23 03:29 | REP ---
Clinical: Given history of prostate cancer and renal cell carcinoma. Technique: Axial contrast enhanced images from the thoracic inlet to the upper abdomen with coronal and sagittal re-formations using 100 ml Isovue 370 intravenous contrast material with delayed images of the abdomen as well as coronal and sagittal re-formations. Comparison: None. Findings: Fatty infiltration to the liver suggested without focal hepatic lesion. Spleen, pancreas, gallbladder, bilateral adrenal glands and right kidney are normal. Findings suggest postsurgical changes in the left renal fossa versus an irregular completely atrophic appearance to the left kidney and correlation is recommended. No prior examinations are available for direct comparison. The enteric system is without obstruction or acute inflammatory process. Normal appendix identified in the right lower quadrant. Colonic/sigmoid diverticulosis noted without acute diverticulitis. Pelvis demonstrates collapsed bladder and findings to suggest prior prostate surgery. No ascites. No free air. No significant intraperitoneal or retroperitoneal adenopathy. No obvious abdominopelvic mass lesion. Aorta and vasculature appear relatively normal. Skeletal structures demonstrate age-related changes without focal abnormality. Impression: 1. Subtle irregularity in the left renal fossa may represent postsurgical changes versus chronic atrophic left kidney. Focal recurrence less likely. Correlation with history is recommended as no prior examinations are available for comparison. 2. Diverticulosis without acute diverticulitis. 3. No ascites, adenopathy, or focal inflammatory stranding. Electronically Signed by James Singh MD 08/23/2019 03:20 A
== END ==
LOC: M RAD 13:36
PROVIDERS: ATTEND Urology
DX: C61 Malignant neoplasm of prostate (principal); C64.2 Malignant neoplasm of left kidney, except renal pelvis
CPT/HCPCS: 74177; Q9967

== ENCOUNTER → 2020-10-29 | Outpatient (CLI) | payer OTHER ==
[~2020-10-29] MED LIST changes: -AMLO10TA5 PO; +AMLO1TAB25 PO; +ASPI81TA86 PO; -ISOVUE-370 76% 100ML VIAL (Q9967) As Ordered ONE; +ISOVUE-370 76% 100ML VIAL As Ordered ONE
--- NOTE | 2020-10-29 16:48 | REP ---
INDICATION: RENAL CELL CARCINOMA LEFT KIDNEY. Patient is status post left nephrectomy. There is also history of prostate carcinoma. COMPARISON: Comparison CT study is from August 22, 2019.. TECHNIQUE: Pre and post contrast imaging of the abdomen is acquired. The contrast enhancement dose is 100 mL of Isovue 370. 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 The lung bases are clear on axial CT images apart from some linear fibrosis in the right base along the major fissure. There is moderate diffuse fatty infiltration of the liver with areas of fat sparing near the gallbladder. No abnormality is noted in the gallbladder. No focal liver lesion is seen. Spleen is unremarkable. The left kidney is surgically absent. There is a small soft tissue density in the left nephrectomy site measuring 2.2 x 1.4 x 1.1 cm. This is decreased in size from the density observed on August 22, 2019 and is consistent with postoperative granulation or resolving heme Jose. No adrenal lesion is seen. No evidence of periaortic adenopathy. No right renal mass or right-sided hydronephrosis is seen. No abnormality is noted in the pancreas. There is mild vascular calcification. Small and large bowel loops are unremarkable. No bony destructive lesion is seen. IMPRESSION: Status post left nephrectomy. Interval regression of nonspecific soft tissue density at the left nephrectomy site most consistent with postoperative change. No mass or adenopathy seen. <Electronically signed by Russel Mcclure > 10/29/20 [id number]
== END ==
LOC: M RAD 07:28
PROVIDERS: ATTEND Urology
DX: C64.2 Malignant neoplasm of left kidney, except renal pelvis (principal)
CPT/HCPCS: 74170; Q9967

== ENCOUNTER → 2021-12-02 | Outpatient (CLI) | payer MEDICARE, OTHER ==
[~2021-12-02] MED LIST changes: +GASTROGRAFIN SOLUTION 30ML (Q9963) As Ordered ONE; +LOSA100T45 PO; -LOSA100T50 PO; +OMEP-173 PO; -OMEP-218 PO
[2021-12-02 10:17] LABS: BLOOD UREA NITROGEN 14 MG/DL (7-18); CALCIUM LEVEL 9.8 MG/DL (8.8-10.2); CARBON DIOXIDE LEVEL 25 MEQ/L (21-32); CHLORIDE LEVEL 102 MEQ/L (98-107); CREATININE FOR GFR 1.16 MG/DL (0.70-1.30); GLOMERULAR FILTRATION RATE > 60.0 (>49); GLUCOSE, FASTING 109 MG/DL (70-100); POTASSIUM SERUM 5.5 MEQ/L (3.5-5.1); SODIUM LEVEL 134 MEQ/L (136-145)
== END ==
LOC: M RAD 09:03
PROVIDERS: ATTEND Urology
DX: C64.2 Malignant neoplasm of left kidney, except renal pelvis (principal); Z90.5 Acquired absence of kidney; C61 Malignant neoplasm of prostate; R91.8 Other nonspecific abnormal finding of lung field
CPT/HCPCS: 36415; 71046; 74170; 80048; Q9963; Q9967

== ENCOUNTER → 2023-10-22 | Outpatient (CLI) | payer MEDICARE, OTHER ==
[~2023-10-22] MED LIST changes: -GASTROGRAFIN SOLUTION 30ML (Q9963) As Ordered ONE; -ISOVUE-370 76% 100ML VIAL As Ordered ONE; -LOSA100T45 PO; +LOSA100T46 PO
== END ==
LOC: M PLAIMG 09:10
PROVIDERS: ATTEND Urology
DX: R91.1 Solitary pulmonary nodule (principal)